=== PATIENT | male | born 1950 | race Caucasian/White ===

== ENCOUNTER 2019-02-17 00:28 | Emergency (ER) | payer MEDICARE, BC ==
[~2019-02-17] VITALS: Ht 170.2 cm; Wt 90.3 kg
[2019-02-17 00:33] VITALS: Ht 170.2 cm; Wt 90.3 kg
[2019-02-17] MEDS ORDERED: KETOROLAC 30 MG INJ IM STA (01:01)
--- NOTE | 2019-02-17 03:37 | ERD ---
ER Documentation Chief Complaint Chief Complaint low to mid back pain x 3 days. denies trauma HPI 68-year-old complaining of low back pain x3 days, back pain has been constant nonradiating and nonexertional. He states the pain is in the entire back and not localized. He denies chest pain or shortness of breath, no dysuria, no hematuria, no fevers or chills, no weight loss ROS All systems reviewed and are negative except as per history of present illness. Medications Home Meds Active Scripts Ibuprofen* (Motrin*) 600 Mg Tab, 600 MG PO Q8 PRN for PAIN AND/OR INFLAMMATION, #30 TAB Prov:LESLI ROSAS MD 02/17/19 Cephalexin* (Keflex*) 500 Mg Capsule, 500 MG PO QID for 5 Days, CAP Prov:LESLI ROSAS MD 02/17/19 Allergies Allergies: Coded Allergies: No Known Drug Allergies (Verified Allergy, Unknown, 02/17/19) PMhx/Soc Hypertension, obesity Medical and Surgical Hx: pt denies Surgical Hx Hx Cardiac Disorders: Yes (HTN) Hx Alcohol Use: Yes Hx Substance Use: No Hx Tobacco Use: No Smoking Status: Never smoker Physical Exam Vitals Vital Signs Date Temp Pulse Resp B/P (MAP) Pulse Ox O2 O2 Flow FiO2 Time Delivery Rate 02/17/19 65 15 132/65 99 Room Air 03:44 (87) 02/17/19 60 16 152/94 98 Room Air 02:57 (113) 02/17/19 97.7 71 18 205/91 96 00:33 (129) Physical Exam Const: No acute distress Resp: Clear to auscultation bilaterally Cardio: Regular rate and rhythm, no murmurs Abd: Soft, non tender, non distended. Normal bowel sounds Skin: No petechiae or rashes Back: No midline or flank tenderness, no ecchymosis or contusions Ext: No cyanosis, or edema Neur: Awake and alert x3, no focal deficits or facial asymmetry Psych: Normal Mood and Affect Results 24 hrs Laboratory Tests Test 02/17/19 01:05 Urine Color YELLOW Urine Clarity SLIGHTLY CLOUDY Urine pH 5.0 Urine Specific [place] 1.023 Urine Ketones NEGATIVE mg/dL Urine Nitrite NEGATIVE mg/dL Urine Bilirubin NEGATIVE mg/dL Urine Urobilinogen NEGATIVE mg/dL Urine Leukocyte Esterase NEGATIVE Sharon/ul Urine Microscopic RBC 179 /HPF Urine Microscopic WBC 27 /HPF Urine Mucus FEW /HPF Urine Hemoglobin 3+ mg/dL Urine Glucose NEGATIVE mg/dL Urine Total Protein NEGATIVE mg/dl Current Medications Medications Dose Sig/Madhavi Start Time Status Last (Trade) Ordered Route PRN Stop Time Admin Dose Reason Admin Ketorolac 30 mg ONCE STAT 02/17/19 DC 02/17/19 Tromethamine IM 01:01 01:43 (Toradol) 02/17/19 01:04 Procedures/MDM I administered Toradol 30 mg IM x1. Urine analysis positive for RBCs and WBCs CT scan of the abdomen pelvis was performed, iMPRESSION: 1. No renal calculi are seen. 2. 2 left renal cysts are noted. 3. Innumerable cysts or hamartomas are noted within the liver measuring up to 1.3 cm in size. 4. A couple of pulmonary nodules are seen measuring up to 0.6 x 0.4 cm. Correlation with priors is suggested if available. This may not warrant additional followup if the patient has no risk factors per the Fleischner society guidelines. If the patient has risk factors a followup chest CT is suggested in 12 months. I gave the patient a copy of the CT scan report and recommend that he follow-up with his PMD, I also prescribed him analgesics and antibiotics for hematuria. He will also have to follow-up with his PMD for urology consultation if hematuria continues. Differential diagnoses considered, included but not limited to acute coronary syndrome, pulmonary embolism, aortic dissection, abdominal aortic aneurysm, sepsis, stroke, meningitis, encephalitis, pneumonia, appendicitis, cholecystitis, bowel obstruction, pyelonephritis, nephrolithiasis, cystitis, as well as metabolic, hematologic, and electrolyte abnormalities. As well as abscess, cellulitis, fractures, and dislocations. Patient feels much better at this time, and vital signs are normal, symptoms have improved. I did give strict instructions to return to the ED if symptoms continue or worsen, patient will otherwise follow-up with primary care physician. Patient understood instructions and agreed to plan. Disclaimer: Inadvertent spelling and grammatical errors are likely due to EHR/dictation software use and do not reflect on the overall quality of patient care. Also, please note that the electronic time recorded on this note does not necessarily reflect the actual time of the patient encounter. Departure Diagnosis: Primary Impression: Back pain Back pain location: low back pain Chronicity: acute Back pain laterality: bilateral Sciatica presence: without sciatica Qualified Codes: M54.5 - Low back pain Additional Impressions: Hematuria Hematuria type: unspecified type Qualified Codes: R31.9 - Hematuria, unspecified Pulmonary nodules Condition: Good LESLI ROSAS MD Feb 17, 2019 03:37
[2019-02-17] MEDS ORDERED: IBUP-1542 PO (03:38)
[2019-02-17] MEDS ORDERED: CEPH-443 PO (03:38)
[2019-02-17 03:44] VITALS: BP 132/65; PULSE 65; RESP 15
== END 2019-02-17 03:44 | disposition home or self-care (01) ==
LOC: E/R 00:28
DX: M54.5 Low back pain (principal); I10 Essential (primary) hypertension; R31.9 Hematuria, unspecified; R91.1 Solitary pulmonary nodule
CPT/HCPCS: 74176; 81001; 96372; 99285; J1885